=== PATIENT | female | born 1985 | race Caucasian/White ===

== ENCOUNTER 2020-06-19 10:12 | Emergency (ER) | payer SELFPAY ==
[2020-06-19 10:21] VITALS: BP 122/67; PULSE 98; RESP 16; TEMP 36.6; O2SAT 97; BMI 34.3
[2020-06-19 10:26] VITALS: BP 122/80; PULSE 90; RESP 18; O2SAT 98
[2020-06-19] MEDS: lidocaine 2% viscous 15 mL UDC 10 ML TOPICAL (10:40)
--- NOTE | 2020-06-19 10:44 | ED_ITS ---
HPI - Dental/Oral General: Chief complaint: Dental/Oral Stated complaint: oral abcess Time Seen by Provider: 06/19/20 10:17 Source: patient Mode of arrival: ambulatory Limitations: no limitations History of Present Illness: HPI Narrative: Pleasant 34-year-old female patient presents to the emergency department with top, left dental pain. She reports pain started yesterday. States IBU affective with pain control. Has completed warm, salt water swish and spit. States woke this am with left side of her face swelling, denies difficulty breathing, swallowing or swelling under the chin. Attempted to get into a dental provider today but none were open due to weather. MD Complaint: tooth pain Location: Tooth # Teeth map: 1. Onset (ago): hour(s) (24) Duration: constant Severity: moderate Severity scale (1-10): 3 Relieving factors: NSAIDs Associated symptoms: Reports ear or mastoid pain; Denies fever(s) Treatment prior to arrival: oral analgesic Review of Systems General: Reports: 10 or more systems reviewed and unremarkable except in HPI and below Const: Denies: fever(s), chills or diaphoresis Eyes: Denies: blurry vision or eye redness ENMT: Reports: dental pain and ear or mastoid pain; Denies: throat pain, hoarseness, dry mouth, nasal discharge, nasal congestion, nasal obstruction or post nasal drip Card: Denies: chest pain, palpitations or irregular heart rhythm Resp: Denies: dyspnea, productive cough, non-productive cough or wheezing GI: Denies: abdominal pain, nausea or vomiting : Denies: difficulty voiding or dysuria Musc: Denies: back pain Skin/Breast: Denies: rash or pruritus Neuro: Denies: headache(s), weakness in extremities or behavioral changes Psych: Denies: anxiety or depression Daniel/Lymph: Denies: easy bruising PFS ED PFSH: Medical History Healthy adult Female Reproductive History: Date of last menstrual period: 06/11/20 Physical Exam Const: COMMON NORMALS: no acute distress, patient oriented x3, healthy appearing and alert GENERAL APPEARANCE: cooperative, comfortable and well hydrated HENMT: COMMON NORMALS: normocephalic, atraumatic, hearing grossly normal bilaterally, external ears normal, EAC's normal, TM's normal bilaterally, Normal external nose present, Normal nasal mucous membranes and turbinates present and moist oral mucous membranes HEAD & SCALP: normal to inspection, normocephalic and atraumatic FACE & SINUS: sinus tenderness maxillary (lt), erythema on the left and edema on the left; no abrasion and no ecchymosis NOSE: Normal external nose present and Normal nasal mucous membranes and turbinates present EXTERNAL EAR: Yes external ears normal EXTERNAL AUDITORY CANAL: EAC's normal TYMPANIC MEMBRANE: TM's normal bilaterally MOUTH: Normal oral and palatal mucosa present, lip normal, tongue normal and Normal salivary glands and ducts present TEETH & GINGIVA IMAGES: 1. Gingival abscess present, #12 THROAT: posterior oropharynx normal and uvula midline Eye: COMMON NORMALS: Equal, round and reactive pupils present and EOMs intact bilaterally GENERAL EYE: appearance normal, both eyes and all related structures PUPIL: Yes Equal, round and reactive pupils present Neck/C-Spine: COMMON NORMALS: full ROM and no lymphadenopathy GENERAL: Yes normal visual inspection and Yes trachea midline CERVICAL SPINE: Yes cervical ROM normal Lymph: LYMPHATIC: no lymphadenopathy noted Chest: COMMONS NORMALS: normal inspection of the chest Resp: COMMON NORMALS: normal respiratory effort and clear to auscultation bilaterally AUSCULTATION: clear to auscultation bilaterally Cardio: COMMON NORMALS: regular rhythm, S1 normal heart sound present and S2 normal heart sound present RHYTHM: regular rhythm HEART SOUNDS: S1 normal heart sound present and S2 normal heart sound present GI: COMMON NORMALS: Soft to palpation and non-tender INSPECTION: Yes normal to inspection PALPATION: Yes Soft to palpation : COMMON NORMALS: Yes no CVA tenderness BLADDER/KIDNEY EXAM: Yes no CVA tenderness Back/Pelvis: COMMON NORMALS: no CVA tenderness and thoracic and lumbar spine normal to inspection Extremity: COMMON NORMALS: normal to inspection and capillary refill normal Neuro: COMMON NORMALS: patient oriented x3 and no focal motor deficits SENSORIUM/ORIENTATION: Yes alert Psych: COMMON NORMALS: mental status grossly normal, Normal thought process present and cooperative ACTIVITY/MOTOR BEHAVIOR: Yes appropriate eye contact THOUGHT PROCESS: Normal thought process present Skin: COMMON NORMALS: no rashes or lesions noted and turgor normal GENERAL SKIN EXAM: no rashes or lesions noted and turgor normal Procedures Abscess I/D Site: other (left dental # 12) Side (if applicable): left Local Anesthetic: other anesthetic (viscous lidocaine - topical to the abscess) Technique: incised with #11 blade (large amount of purulent exudate) Irrigation: Yes Packing used?: none Complications: other (none) Course Vital Signs: Vital signs: Vital Signs Temperature 97.9 F 06/19/20 10:21 Pulse Rate 90 06/19/20 10:26 Respiratory Rate 18 06/19/20 10:26 Blood Pressure 122/80 06/19/20 10:26 Pulse Oximetry 98 06/19/20 10:26 Discharge Plan Discharge Patient Disposition: Home Clinical Impression: Dental abscess, Toothache Condition: Stable Prescriptions: New penicillin V potassium 500 mg tablet 500 mg PO Q6H 10 Days Qty: 40 RF: 0 chlorhexidine gluconate 0.12 % mouthwash 15 ml buccal BID Qty: 118 RF: 0 Discharge Orders: Discharge ED (Routine); Ordered 06/19/20 Ordered By: Rossana Kingston Discharge Diet: GI Soft Discharge Activity: Limit activity as instructed Patient Instructions: Dental Abscess (ED), Toothache (ED), Opioid Safety Activity Restrictions/Additional Instructions: Continue warm salt water swish and spit several times daily Avoid chewing on the affected side Soft foods only, avoid hard crunchy foods as foods can become lodged in the incision area May apply warm moist heat/cool compresses to the left side of the face as needed for pain and swelling, continue ibuprofen 600 mg 3 times daily with food to avoid upset stomach, may augment with Tylenol if needed for pain Follow-up with your dentist this week without fail, failure to do so can cause loss of the tooth or worsening infection Stand Alone Forms: Work/School Release Coding Level of Care Code ED Batch Room Technician for Lauri Fwd Exam Comprehensive
[2020-06-19] MEDS: penicillin v potassium 250 mg Tablet 500 MG PO (10:56)
[2020-06-19 11:00] VITALS: BP 118/74; PULSE 93; RESP 18; TEMP 36.6; O2SAT 96
== END 2020-06-19 11:03 | disposition home or self-care (01) ==
PROVIDERS: Emergency Provider Nurse Practitioner Family
DX: K04.7 Periapical abscess without sinus (principal)
CPT/HCPCS: 41800; 99283

== ENCOUNTER 2024-07-23 09:51 | Emergency (ER) | payer SELFPAY ==
[2024-07-23 09:52] VITALS: BP 153/107; PULSE 80; RESP 18; TEMP 36.9; O2SAT 94; BMI 49.6
--- NOTE | 2024-07-23 09:58 | XRR_ITS ---
PROCEDURE INFORMATION: Exam: XR Chest Exam date and time: 07/23/2024 10:06 AM Age: 39 years old Clinical indication: Shortness of breath; Additional info: SOB TECHNIQUE: Imaging protocol: Radiologic exam of the chest. Views: 1 view. COMPARISON: No relevant prior studies available. FINDINGS: Lungs: The pulmonary vessels are within normal limits. The lungs are clear. Pleural spaces: No pneumothorax. Heart/Mediastinum: The cardiomediastinal silhouette is within normal limits. Bones/joints: Osseous structure is unremarkable. XR/XR chest 1V portable [id number] IMPRESSION: No acute pulmonary finding.
--- NOTE | 2024-07-23 10:00 | W.ED.SOB ---
HPI - SOB/Dyspnea General: Chief Complaint: Shortness of Breath/Dyspnea Stated Complaint: sob Time Seen by Provider: 07/23/24 09:55 Source: patient Mode of arrival: ambulatory Limitations: no limitations History of Present Illness: HPI Narrative: 39-year-old female states that she has been having cough shortness of breath and wheezing it is going on for the last week. She is a former smoker no known history of asthma that she has been using some albuterol at home and has had some slight improvement states her shortness of breath is much worse with exertion she denies any chest pain denies any fever. Associated symptoms: Deny abdominal pain, chest pain, fever(s), nausea or vomiting Related Data Home Medications ?Medication ?Instructions ?Recorded ?Confirmed hydroxyzine HCl 25 mg tablet 25 mg PO BID 07/23/24 07/23/24 Previous Rx's ?Medication ?Instructions ?Recorded citalopram 40 mg tablet 40 mg PO DAILY #30 tabs 04/14/24 Allergies Allergy/AdvReac Type Severity Reaction Status Date / Time No Known Allergies Allergy Verified 07/23/24 10:03 Review of Systems Const: Denies: fever(s), chills, body aches or change in appetite ENMT: Denies: throat pain or dental pain Card: Denies: chest pain Resp: Reports: dyspnea, non-productive cough and wheezing GI: Denies: abdominal pain, nausea, vomiting or diarrhea : Denies: dysuria Musc: Denies: neck pain or back pain Skin/Breast: Denies: rash Neuro: Denies: headache(s) PFS ED PFSH: Medical History Encounter to establish care Anxiety and depression Healthy adult Family History Mother Mental health problem Father No problems noted. Social History Smoking and tobacco/nicotine status: current every day tobacco/nicotine user Alcohol intake: former Substance/Drug Use: current Substance/Drug use frequency: Special occassions/opportunity only Adopted: No Physical Exam Const: COMMON NORMALS: patient oriented x3 HENMT: COMMON NORMALS: normocephalic and atraumatic HEAD & SCALP: normocephalic and atraumatic Eye: COMMON NORMALS: Equal, round and reactive pupils present and EOMs intact bilaterally PUPIL: Yes Equal, round and reactive pupils present Neck/C-Spine: COMMON NORMALS: full ROM and supple Chest: COMMONS NORMALS: normal inspection of the chest Resp: COMMON NORMALS: No retractions and No use of accessory muscles AUSCULTATION: wheezes Cardio: COMMON NORMALS: regular rate, regular rhythm and No murmurs present (Cardio) RATE: regular rate RHYTHM: regular rhythm Extremity: COMMON NORMALS: normal to inspection and full ROM Neuro: COMMON NORMALS: patient oriented x3, moves all extremities and no focal motor deficits Psych: COMMON NORMALS: mental status grossly normal, Normal thought process present and cooperative THOUGHT PROCESS: Normal thought process present Skin: COMMON NORMALS: no rashes or lesions noted and no wounds GENERAL SKIN EXAM: no rashes or lesions noted Course Vital Signs: Vital signs: Vital Signs Temperature 98.4 F 07/23/24 09:52 Pulse Rate 88 07/23/24 10:37 Respiratory Rate 16 07/23/24 10:16 Blood Pressure 167/78 07/23/24 10:37 Pulse Oximetry 92 07/23/24 10:37 Oxygen Delivery Me thod Room Air 07/23/24 10:16 MDM - SOB/Dyspnea Medical Decision Making Patient presents here with shortness of breath likely has some underlying asthma she has quite a bit of wheezing here D-dimer is negative no signs of pneumonia we will start her on prednisone along with albuterol inform her she needs to follow-up with a PCP she has no signs of cardiac cause or pulm embolism she is return if worsening Medical Records I reviewed the patient's medical records. Lab Data I reviewed the patient's lab results. 07/23/24 10:11 07/23/24 10:11 Labs/Radiology: Radiology Impressions Chest X-Ray 07/23/24 09:58 IMPRESSION: No acute pulmonary finding. Laboratory Results WBC 7.15 10^3/uL (3.29-11.43) 07/23/24 10:11 RBC 4.92 10^6/uL (3.85-5.65) 07/23/24 10:11 Hgb 14.50 g/dL (11.27-16.99) 07/23/24 10:11 Hct 45.3 % (36-47) 07/23/24 10:11 MCV 92.1 fl (85-98) 07/23/24 10:11 MCH 29.5 pg (27-33) 07/23/24 10:11 MCHC 32.0 g/dL (30-55) 07/23/24 10:11 RDW 12.2 % (12.1-15.1) 07/23/24 10:11 Plt Count 284 10^3/cmm (157-399) 07/23/24 10:11 MPV 9.6 fL (7.4-10.4) 07/23/24 10:11 Neut % (Auto) 55.3 % 07/23/24 10:11 Lymph % (Auto) 24.5 % 07/23/24 10:11 Piute % (Auto) 6.7 % 07/23/24 10:11 Eos % (Auto) 12.4 % 07/23/24 10:11 Baso % (Auto) 1.0 % 07/23/24 10:11 Neut # (Auto) 3.95 10^3/uL (1.8-7.7) 07/23/24 10:11 Lymph # (Auto) 1.8 10^3/uL (0.8-4.8) 07/23/24 10:11 Piute # (Auto) 0.5 10^3/uL (0.2-0.9) 07/23/24 10:11 Eos # (Auto) 0.9 10^3/uL (0.0-0.8) H 07/23/24 10:11 Baso # (Auto) 0.1 10^3/uL (0.0-0.1) 07/23/24 10:11 Nucleated RBC % (auto) 0 % 07/23/24 10:11 Nucleated RBCs # 0.0 /100WBC 07/23/24 10:11 D-Dimer 0.46 ug/mLFEU (0-0.59) 07/23/24 10:11 Sodium 139 mmol/L (136-145) 07/23/24 10:11 Potassium 4.4 mmol/L (3.5-5.1) 07/23/24 10:11 Chloride 105 mmol/L (98-107) 07/23/24 10:11 Carbon Dioxide 23 mmol/L (22-29) 07/23/24 10:11 Anion Gap 15.4 (5-19) 07/23/24 10:11 BUN 13 mg/dL (6-20) 07/23/24 10:11 Creatinine 1.1 mg/dL (0.5-0.9) H 07/23/24 10:11 GFR Calculation 55.3 mL/min (90-130) L 07/23/24 10:11 Glucose 81 mg/dL (65-115) 07/23/24 10:11 Calculated Osmolality 287 mOsm/kg (285-295) 07/23/24 10:11 Calcium 8.9 mg/dL (8.5-10.5) 07/23/24 10:11 Total Bilirubin 0.3 mg/dL (0.15-1.2) 07/23/24 10:11 AST 18 U/L (0-32) 07/23/24 10:11 ALT 21 U/L (0-33) 07/23/24 10:11 Alkaline Phosphatase 65 U/L (35-105) 07/23/24 10:11 NT-Pro-B Natriuret Pep 48 pg/mL (0-125) 07/23/24 10:11 Total Protein 7.3 g/dL (6.6-8.7) 07/23/24 10:11 Albumin 4.5 g/dL (3.5-5.2) 07/23/24 10:11 Globulin 2.8 g/dL (1.3-4.6) 07/23/24 10:11 Influenza A (PCR) Negative (Negative) 07/23/24 10:30 Influenza Type B (PCR) Negative (Negative) 07/23/24 10:30 RSV (PCR) Negative (Negative) 07/23/24 10:30 SARS-CoV-2 (PCR) Negative (Negative) 07/23/24 10:30 All radiology interpretation(s) finalized by discharge EKG Data EKG 1: I personally reviewed and interpreted this EKG as follows: EKG Interpretation Date: 07/23/24 EKG interpretation time: 10:32 Interpretation: nsr hr [address] elevation qrs 102 qtc 440 Discharge Plan Discharge Patient Disposition: Home Clinical Impression: Shortness of breath Condition: Stable Prescriptions: No Action citalopram 40 mg tablet 40 mg PO DAILY Qty: 30 5RF hydroxyzine HCl 25 mg tablet 25 mg PO BID Rx Instructions: TAKE 1 TABLET BY MOUTH TWICE DAILY NEEDED FOR ANXIETY Discharge Orders: Discharge ED (Routine); Ordered 07/23/24 Ordered By: Hernando Macias Referrals: Toña Jimenez NP [Primary Care Provider] - Discharge Diet: Advance as tolerated Discharge Activity: Resume usual activity Patient Instructions: Shortness of Breath (ED) Print Language: Nepalese Coding Level of Care Code ED Chemicals Fermentation Operator for Lauri Boucher
[2024-07-23] MEDS: albuterol 2.5 mg/3 mL Neb INHALATION (10:13)
[2024-07-23] MEDS: methylPREDNISolone sod succ 125 mg/2 mL INJ IV (10:14)
[2024-07-23] MEDS: ipratropium-albuterol 3 mL Neb INHALATION (10:14)
[2024-07-23 10:16] VITALS: PULSE 79; RESP 16; O2SAT 96
[2024-07-23 10:19] VITALS: PULSE 79
[2024-07-23 10:19] LABS: Basophils # 0.1 10^3/uL (0.0-0.1); Eosinophils # 0.9 10^3/uL (0.0-0.8); Eosinophils % 12.4 %; Hematocrit 45.3 % (36-47); Lymphocytes # 1.8 10^3/uL (0.8-4.8); Lymphocytes % 24.5 %; Mean Corpuscular Hemoglobin 29.5 pg (27-33); Mean Corpuscular Volume 92.1 fl (85-98); Mean Platelet Volume 9.6 fL (7.4-10.4); Monocytes # 0.5 10^3/uL (0.2-0.9); Monocytes % 6.7 %; Neutrophils # 3.95 10^3/uL (1.8-7.7); Neutrophils % 55.3 %; Nucleated Red Blood Cells % 0 %; Platelet Count 284 10^3/cmm (157-399); Red Blood Count 4.92 10^6/uL (3.85-5.65); Red Cell Distribution Width 12.2 % (12.1-15.1); White Blood Count 7.15 10^3/uL (3.29-11.43)
--- NOTE | 2024-07-23 10:32 | ECG_ITS ---
[facility] [place] [facility] Date: 2024-07-23 Pat Name: Margie Alfred Department: Room: Gender: Female Clinical Reimbursement Specialist: : [id number] Requested By: Hernando Macias Order Number: [id number] [place] MD: Radha Causey M.D. Measurements Intervals Benson Rate: 81 P: 53 VT: 133 QRS: 30 QRSD: 102 T: 7 QT: 402 QTc: 469 Interpretive Statements SINUS RHYTHM LOW QRS VOLTAGE IN PRECORDIAL LEADS [QRS DEFLECTION < 1.0 mV IN CHEST LEADS] INCOMPLETE RIGHT BUNDLE BRANCH BLOCK [90+ ms QRS DURATION, TERMINAL R IN V1/V2, 40+ ms S IN I/aVL/V4/V5/V6] No previous ECG available for comparison Electronically Signed On 07-23-2024 22:41:38 CDT by Radha Causey M.D. [email or web address]
[2024-07-23 10:33] LABS: D Dimer 0.46 ug/mLFEU (0-0.59)
[2024-07-23 10:37] VITALS: BP 167/78; PULSE 88; O2SAT 92
[2024-07-23 10:50] LABS: Alanine Aminotransferase 21 U/L (0-33); Albumin Level 4.5 g/dL (3.5-5.2); Alkaline Phosphatase 65 U/L (35-105); Anion Gap 15.4 (5-19); Aspartate Amino Transferase 18 U/L (0-32); Blood Urea Nitrogen 13 mg/dL (6-20); Calcium 8.9 mg/dL (8.5-10.5); Carbon Dioxide 23 mmol/L (22-29); Chloride 105 mmol/L (98-107); Creatinine Clr Calc Pharmacy 92.4136; Globulin 2.8 g/dL (1.3-4.6); Glomerular Filtration Rate 55.3 mL/min (90-130); Glucose 81 mg/dL (65-115); NT Pro B Type Natriuretic Pept 48 pg/mL (0-125); Osmolality Calculated 287 mOsm/kg (285-295); Potassium 4.4 mmol/L (3.5-5.1); Sodium 139 mmol/L (136-145); Total Bilirubin 0.3 mg/dL (0.15-1.2); Total Protein 7.3 g/dL (6.6-8.7)
[2024-07-23 11:20] LABS: Influenza A NEGATIVE (Negative); Influenza B NEGATIVE (Negative); Respiratory Syncytial Virus Ce NEGATIVE (Negative); SARS-CoV-2 PCR NEGATIVE (Negative)
[2024-07-23 12:03] VITALS: BP 111/84; PULSE 88; RESP 15; O2SAT 93
[2024-07-23 12:21] VITALS: BP 111/84; PULSE 76; O2SAT 94
== END 2024-07-23 12:23 | disposition home or self-care (01) ==
PROVIDERS: Emergency Provider Emergency Medicine
DX: R06.02 Shortness of breath (principal); Z11.52 Encounter for screening for COVID-19; Z72.0 Tobacco use
CPT/HCPCS: 71045; 80053; 83880; 85025; 85378; 87637; 93005; 94640; 96374; 99285; J2919; J7613; J9999

== ENCOUNTER 2024-10-06 10:51 | Outpatient (CLI) | payer SELFPAY ==
--- NOTE | 2024-10-06 10:58 | XR_ITS ---
WS: [id number] XR chest 2V* [id number] REASON FOR EXAM: wheezing FINDINGS: Chest is unchanged compared to 07/21/2024. Heart and the mediastinum are within normal limits. Calcified granulomatous disease in both hemithoraces. No acute pulmonary parenchymal or pleural abnormality. No significant abnormality of the bony thorax. XR/XR chest 2V* [id number] IMPRESSION: Stable chest without acute abnormality.
== END 2024-10-06 10:52 | disposition home or self-care (01) ==
DX: R06.2 Wheezing (principal); J84.10 Pulmonary fibrosis, unspecified
CPT/HCPCS: 71046

== ENCOUNTER 2024-11-28 07:14 | Outpatient (CLI) | payer SELFPAY ==
[2024-11-28 07:45] VITALS: PULSE 90; RESP 18; O2SAT 98
== END 2024-11-28 07:15 | disposition home or self-care (01) ==
DX: R06.09 Other forms of dyspnea (principal); R06.2 Wheezing; R06.02 Shortness of breath
CPT/HCPCS: 94060; 94726; 94729; J7613